=== PATIENT | female | born 2000 | race Caucasian/White ===

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

== ENCOUNTER 2022-11-13 18:22 | Emergency (ER) | payer MEDICAID, OTHER ==
[2022-11-13 19:12] LABS: GLUCOSE, URINE (UA) NEGATIVE (NEGATIVE); KETONES,URINE (UA) 40 mg/dL (NEGATIVE); LEUKOCYTE ESTERASE, URINE NEGATIVE (NEGATIVE); NITRITE,URINE NEGATIVE (NEGATIVE); OCCULT BLOOD,URINE NEGATIVE (NEGATIVE); PROTEIN,URINE TRACE mg/dL (NEGATIVE); UROBILINOGEN,URINE 1 (NORMAL) E.U./dL (NORMAL)
[2022-11-13 19:14] LABS: HCG UR QUAL NEGATIVE
[2022-11-13 19:15] LABS: BASOPHILS # (AUTO) 0.1 10^3/uL (0.0-0.1); BASOPHILS % (AUTO) 0.6 %; EOSINOPHILS % (AUTO) 0.3 %; HGB - HEMOGLOBIN 14.6 g/dL (12.0-16.0); LYMPHOCYTES # (AUTO) 1.5 10^3/uL (1.5-3.5); LYMPHOCYTES % (AUTO) 11.5 %; MEAN CORPUSCULAR HEMOGLOBIN 27.5 pg (27.0-31.0); MEAN CORPUSCULAR HGB CONC 33.2 g/dL (32.0-36.0); MEAN CORPUSCULAR VOLUME 82.9 fL (81.0-99.0); MEAN PLATELET VOLUME 10.7 fL (7.9-10.8); MONOCYTES # (AUTO) 0.5 10^3/uL (0.0-1.0); MONOCYTES % (AUTO) 4.2 %; NEUTROPHILS # (AUTO) 10.6 10^3/uL (1.5-6.6); NEUTROPHILS % (AUTO) 83.1 %; PLT - PLATELET COUNT 338 10^3/uL (130-450); RED BLOOD COUNT 5.31 10^6/uL (4.20-5.40); RED CELL DISTRIBUTION WIDTH 12.1 % (12.0-15.0); WHITE BLOOD COUNT 12.7 x10^3/uL (4.8-10.8)
[2022-11-13 19:18] LABS: CLARITY,URINE HAZY (CLEAR)
[2022-11-13 19:19] LABS: BILIRUBIN,URINE NEGATIVE (NEGATIVE); ICTOTEST,URINE NEGATIVE
[2022-11-13 19:23] LABS: BACTERIA,URINE Few /HPF (None Seen); MUCUS,URINE Marked Strands; RBC,URINE 0-5 /HPF (0-5); SQUAMOUS EPITHELIAL CELL,UR FEW Squamous (<= Few); WBC,URINE 0-3 /HPF (0-5)
[2022-11-13] MEDS: LORazepam 1 MG TABLET PO STA ×2 (19:23→19:26)
[2022-11-13 19:32] LABS: ALBUMIN 5.2 g/dL (3.2-5.5); ALBUMIN/GLOBULIN RATIO 1.6 (1.0-2.2); BILIRUBIN,TOTAL 5.2 mg/dL (0.2-1.0); CALCIUM 9.9 mg/dL (8.5-10.3); CREATININE 0.9 mg/dL (0.4-1.0); POTASSIUM 3.5 mmol/L (3.5-5.0); TOTAL PROTEIN 8.4 g/dL (6.7-8.2)
--- NOTE | 2022-11-13 19:44 | ED Physician Documentation ---
History of Present Illness - Stated complaint Stated Complaint: NAUSEA,CHILLS - Chief complaint Chief Complaint: General - History obtained from History obtained from: Patient - History of Present Illness Timing: Yesterday Pain level max: 0 Pain level now: 0 - Additonal information Additional information: Patient is a 22-year-old female who presents to the emergency department complaining of nausea, chills, shaking. She states that she has been under a lot of stress and has a longstanding history of anxiety. No fevers. Has a longstanding history of anxiety, is not currently taking any medications. She does use cannabis daily. Denies any possibility of . No recent travel. No recent antibiotics. She states that she feels like she has been hyperventilating since last night. She states that she is having tingling in both of her hands. Review of Systems Constitutional: denies: Fever, Chills Respiratory: denies: Cough GI: reports: Nausea, Vomiting. denies: Abdominal Pain, Diarrhea, Hematemesis, B loody / black stool : denies: Dysuria, Frequency, Hesitancy, Now EGA Skin: denies: Rash Musculoskeletal: denies: Neck pain, Back pain Neurologic: denies: Headache Psychiatric: reports: Anxiety. denies: Suicidal, Homicidal, Hallucinations, Delusions PD PAST MEDICAL HISTORY - Past Medical History Past Medical History: Yes Psych: Depression, Anxiety - Present Medications Home Medications: Ambulatory Orders Medication Instructions Recorded Confirmed LORazepam [Ativan] 0.5 mg PO BID PRN #7 tablet 11/13/22 Ondansetron Odt [Zofran] 4 mg TL Q6H PRN #10 tablet 11/13/22 - Allergies Allergies/Adverse Reactions: Allergies Allergy/AdvReac Type Severity Reaction Status Date / Time No Known Drug Allergies Allergy Verified 11/13/22 18:25 - Living Situation Living Situation: reports: With family Living Arrangement: reports: At home - Social History Does the pt smoke?: No Smoking Status: Never smoker Does the pt have substance abuse?: Yes Substance Use and Type: Marijuana PD ED PE NORMAL - Vitals Vital signs reviewed: Yes - General General: Alert and oriented X 3, Well developed/nourished, Other (Hyperventilating, anxious) - HEENT HEENT: PERRL, Moist mucous membranes - Neck Neck: Supple, no meningeal sign - Cardiac Cardiac: RRR, Strong equal pulses - Respiratory Respiratory: No respiratory distress, Clear bilaterally - Abdomen Abdomen: Soft, Non tender, Non distended - Back Back: No CVA TTP, No spinal TTP - Derm Derm: Warm and dry, No rash - Extremities Extremities: No edema, No calf tenderness / cord - Neuro Neuro: Alert and oriented X 3 - Psych Psych: Normal mood, Normal affect Results - Vitals Vitals: Vital Signs - 24 hr 11/13/22 11/13/22 18:25 21:23 Temperature 36.5 C 36.3 C L Heart Rate 77 63 Respiratory 20 16 Rate Blood Pressure 127/68 112/52 L O2 Saturation 99 96 Oxygen O2 Source Room air - Labs Labs: Laboratory Tests 11/13/22 11/13/22 11/13/22 19:01 19:01 19:09 WBC 12.7 H RBC 5.31 Hgb 14.6 Hct 44.0 MCV 82.9 MCH 27.5 MCHC 33.2 RDW 12.1 Plt Count 338 MPV 10.7 Neut # (Auto) 10.6 H Lymph # (Auto) 1.5 [place] # (Auto) 0.5 Eos # (Auto) 0.0 Baso # (Auto) 0.1 Absolute Nucleated RBC 0.00 Nucleated RBC % 0.0 Sodium Potassium Chloride Carbon Dioxide Anion Gap BUN Creatinine Estimated GFR (MDRD) Glucose Calcium Total Bilirubin AST ALT Alkaline Phosphatase Total Protein Albumin Globulin Albumin/Globulin Ratio Lipase Urine Color DARK YELLOW Urine Clarity HAZY Urine pH 6.0 Ur Specific [place] >=1.030 H Urine Protein TRACE Urine Glucose (UA) NEGATIVE Urine Ketones 40 H Urine Occult Blood NEGATIVE Urine Nitrite NEGATIVE Urine Bilirubin NEGATIVE Urine Urobilinogen 1 (NORMAL) Ur Leukocyte Esterase NEGATIVE Urine RBC 0-5 Urine WBC 0-3 Ur Squamous Epith Cells FEW Squamous Urine Bacteria Few Urine Mucus Marked Strands Ur Microscopic Review INDICATED Urine Culture Comments NOT INDICATED Urine HCG, Qual NEGATIVE Urine Opiates Screen NEGATIVE Ur Oxycodone Screen NEGATIVE Urine Methadone Screen NEGATIVE Ur Propoxyphene Screen NEGATIVE Ur Barbiturates Screen NEGATIVE Ur Tricyclics Screen NEGATIVE Ur Phencyclidine Scrn NEGATIVE Ur Amphetamine Screen NEGATIVE U Methamphetamines Scrn NEGATIVE U Benzodiazepines Scrn NEGATIVE Urine Cocaine Screen NEGATIVE U Cannabinoids Screen POSITIVE H 11/13/22 19:09 WBC RBC Hgb Hct MCV MCH MCHC RDW Plt Count MPV Neut # (Auto) Lymph # (Auto) [place] # (Auto) Eos # (Auto) Baso # (Auto) Absolute Nucleated RBC Nucleated RBC % Sodium 138 Potassium 3.5 Chloride 102 Carbon Dioxide 20 L Anion Gap 16.0 H BUN 15 Creatinine 0.9 Estimated GFR (MDRD) 80 L Glucose 125 H Calcium 9.9 Total Bilirubin 5.2 H AST 28 ALT 32 Alkaline Phosphatase 76 Total Protein 8.4 H Albumin 5.2 Globulin 3.2 Albumin/Globulin Ratio 1.6 Lipase 27 Urine Color Urine Clarity Urine pH Ur Specific [place] Urine Protein Urine Glucose (UA) Urine Ketones Urine Occult Blood Urine Nitrite Urine Bilirubin Urine Urobilinogen Ur Leukocyte Esterase Urine RBC Urine WBC Ur Squamous Epith Cells Urine Bacteria Urine Mucus Ur Microscopic Review Urine Culture Comments Urine HCG, Qual Urine Opiates Screen Ur Oxycodone Screen Urine Methadone Screen Ur Propoxyphene Screen Ur Barbiturates Screen Ur Tricyclics Screen Ur Phencyclidine Scrn Ur Amphetamine Screen U Methamphetamines Scrn U Benzodiazepines Scrn Urine Cocaine Screen U Cannabinoids Screen PD Medical Decision Making - ED course Complexity details: reviewed results, re-evaluated patient, considered differential, d/w patient, d/w family ED course: Patient is well-appearing, nontoxic. Afebrile. She does have a mild leukocytosis, chemistry is consistent with hyperventilation. Her total bilirubin is mildly elevated but has no abdominal tenderness. Unclear etiology of this. She will follow-up with her doctor for this. We do not have any old values for comparison. No evidence of biliary colic today. Patient feels much better after Zofran and Ativan. She feels more relaxed and is no longer hyperventilating. The paresthesias in the hands have resolved. Will prescribe a small amount of medication for home and have her follow-up with her PCP. Patient counseled regarding signs and symptoms for which I believe and urgent re-evaluation would be necessary. Patient with good understanding of and agreement to plan and is comfortable going home at this time This document was made in part using voice recognition software. While efforts are made to proofread this document, sound alike and grammatical errors may occur. Departure - Departure Disposition: 01 Home, Self Care Clinical Impression: Anxiety, Hyperventilation, Hyperbilirubinemia Condition: Stable Instructions: ED Stress React, ED Hyperventilation Syndrome Follow-Up: Your,doctor in 1 week [Other] Prescriptions: LORazepam [Ativan] 0.5 mg PO BID PRN #7 tablet PRN Reason: anxiety Ondansetron Odt [Zofran] 4 mg TL Q6H PRN #10 tablet PRN Reason: Nausea / Vomiting Comments: Please follow-up with your doctor for further care. You appear to be under significant stress, you were given medication to help with this tonight. Your prescriptions were sent to [facility] in [place]. A list of local primary care providers is in this paperwork. Crisis Line and is available to talk to someone [email or web address] is also available to chat with someone online if you prefer. There are also many resources on this website and apps for your phone to help with your mental health You can also text the word START to [phone] to chat with someome via text. Forms: PCP List Discharge Date/Time: 11/13/22 21:25
[2022-11-13 19:47] LABS: MUDS CUTOFF CONCENTRATIONS CUTOFF CONC BELOW:
[2022-11-13 19:59] LABS: AMPHETAMINE SCREEN,URINE NEGATIVE (NEGATIVE); BARBITURATE SCREEN,UR NEGATIVE (NEGATIVE); BENZODIAZEPINES SCREEN, URINE NEGATIVE (NEGATIVE); COCAINE SCREEN URINE NEGATIVE (NEGATIVE); METHADONE SCREEN, URINE NEGATIVE (NEGATIVE); METHAMPHETAMINES SCREEN, URINE NEGATIVE (NEGATIVE); OPIATE SCREEN, URINE NEGATIVE (NEGATIVE); OXYCODONE SCREEN, URINE NEGATIVE (NEGATIVE); PROPOXYPHENE SCREEN, URINE NEGATIVE (NEGATIVE); THC CANNABINOID SCREEN, URINE POSITIVE (NEGATIVE); TRICYCLIC ANTIDEPRESSANT,URINE NEGATIVE (NEGATIVE)
[2022-11-13] MEDS ORDERED: ONDANSETRON ODT 4 MG TABLET TL STA (20:20)
[2022-11-13] MEDS ORDERED: LORazepam 0.5 MG TABLET PO STA (20:20)
[2022-11-13 21:51] VITALS: BP 112/52
== END 2022-11-13 21:25 | disposition home or self-care (01) ==
LOC: ED 18:22
DX: F41.9 Anxiety disorder, unspecified (principal); R06.4 Hyperventilation; E80.6 Other disorders of bilirubin metabolism
CPT/HCPCS: 36415; 80053; 80306; 81001; 81025; 83690; 85025; 99283; A9270; J8499; Q0162; 81003; 87086

== ENCOUNTER 2023-10-20 16:12 | Outpatient (CLI) | payer MEDICAID | END 2023-10-20 16:13 | disposition critical access hospital (66) | LOC: EMS 16:12 | DX: Z04.6 Encounter for general psychiatric examination, requested by authority (principal); S51.812A Laceration without foreign body of left forearm, initial encounter; X78.1XXA Intentional self-harm by knife, initial encounter | CPT/HCPCS: A0425; A0429; A0999 ==

== ENCOUNTER 2023-10-20 16:48 | Emergency (ER) | payer MEDICAID ==
--- NOTE | 2023-10-20 17:12 | ED Physician Documentation ---
PD HPI MHE - Stated complaint Stated Complaint: SI - Chief complaint Chief Complaint: MHE - History obtained from History obtained from: Patient, EMS - History of Present Illness Primary symptom: Self harm - cut Pain level max: 0 Pain level now: 0 - Additional information Additional information: Patient is a 23-year-old female who states that she has a longstanding history of depression. She was hospitalized 2 years ago at [facility]. She states that she does not have a counselor or psychiatrist currently. Does not have a primary care provider. She states that she was cutting her left arm with an X-[employer] knife today. She states she was not trying to kill herself. She states that she has thoughts of suicide but no plan. She does not want to go to inpatient treatment. Police placed her on an NICK and brought her in by EMS. Tetanus shot up-to-date. She lives with her boyfriend. She does smoke. Review of Systems Constitutional: denies: Fever, Chills GI: denies: Nausea, Vomiting, Diarrhea Skin: denies: Rash Musculoskeletal: denies: Neck pain, Back pain Neurologic: denies: Headache PD PAST MEDICAL HISTORY - Past Medical History Psych: Depression, Anxiety - Past Surgical History Past Surgical History: No - Present Medications Home Medications: Ambulatory Orders Medication Instructions Recorded Confirmed No Known Home Medications 10/20/23 10/20/23 - Allergies Allergies/Adverse Reactions: Allergies Allergy/AdvReac Type Severity Reaction Status Date / Time No Known Drug Allergies Allergy Verified 10/20/23 17:04 - Social History Does the pt smoke?: No Smoking Status: Never smoker Does the pt drink ETOH?: No Does the pt have substance abuse?: Yes - Immunizations Immunizations are current?: No Immunizations: TDAP >10years/unknown - POLST Patient has POLST: No PD ED PE NORMAL - Vitals Vital signs reviewed: Yes - General General: Alert and oriented X 3, No acute distress - HEENT HEENT: Moist mucous membranes - Neck Neck: Supple, no meningeal sign - Cardiac Cardiac: RRR - Respiratory Respiratory: No respiratory distress, Clear bilaterally - Abdomen Abdomen: Soft, Non tender, Non distended - Derm Derm: Warm and dry - Extremities Extremities: Other (There are multiple superficial abrasions to the left forearm. These are on the dorsum of the forearm. No active bleeding.) - Neuro Neuro: Alert and oriented X 3 Results - Vitals Vitals: Vital Signs - 24 hr 10/20/23 10/20/23 17:05 20:16 Temperature 37.3 C 37.0 C Heart Rate 85 82 Respiratory 16 16 Rate Blood Pressure 121/85 H 118/82 H O2 Saturation 100 100 Oxygen O2 Source Room air - Labs Labs: Laboratory Tests 10/20/23 10/20/23 10/20/23 17:11 17:11 18:44 WBC 9.3 RBC 4.73 Hgb 13.4 Hct 39.6 MCV 83.7 MCH 28.3 MCHC 33.8 RDW 12.5 Plt Count 262 MPV 10.6 Neut # (Auto) 7.7 H Lymph # (Auto) 1.2 L [place] # (Auto) 0.4 Eos # (Auto) 0.0 Baso # (Auto) 0.1 Absolute Nucleated RBC 0.00 Nucleated RBC % 0.0 Sodium 140 Potassium 4.5 Chloride 107 Carbon Dioxide 24 Anion Gap 9.0 BUN 7 Creatinine 0.8 Estimated GFR (MDRD) 91 Glucose 91 Calcium 10.2 Magnesium 1.8 Total Bilirubin 2.5 H AST 13 ALT 9 L Alkaline Phosphatase 60 Total Protein 7.0 Albumin 4.9 Globulin 2.1 Albumin/Globulin Ratio 2.3 H Lipase 14 TSH 0.71 Urine Color YELLOW Urine Clarity CLEAR Urine pH 6.0 Ur Specific [place] >=1.030 H Urine Protein TRACE Urine Glucose (UA) NEGATIVE Urine Ketones >=80 H Urine Occult Blood NEGATIVE Urine Nitrite NEGATIVE Urine Bilirubin NEGATIVE Urine Urobilinogen 0.2 (NORMAL) Ur Leukocyte Esterase NEGATIVE Ur Microscopic Review NOT INDICATED Urine Culture Comments NOT INDICATED Urine HCG, Qual NEGATIVE Salicylates < 1.5 Urine Opiates Screen NEGATIVE Ur Buprenorphine Scrn NEGATIVE Ur Oxycodone Screen NEGATIVE Urine Methadone Screen NEGATIVE Acetaminophen 0.1 Ur Barbiturates Screen NEGATIVE Ur Tricyclics Screen NEGATIVE Ur Phencyclidine Scrn NEGATIVE Ur Amphetamine Screen NEGATIVE U Methamphetamines Scrn NEGATIVE U Benzodiazepines Scrn NEGATIVE Urine Cocaine Screen NEGATIVE U Cannabinoids Screen POSITIVE H Ur Drug Screen Comment CUTOFF CONC BELOW: Ethyl Alcohol < 10.0 SARS-CoV-2 (PCR) 10/20/23 18:48 WBC RBC Hgb Hct MCV MCH MCHC RDW Plt Count MPV Neut # (Auto) Lymph # (Auto) [place] # (Auto) Eos # (Auto) Baso # (Auto) Absolute Nucleated RBC Nucleated RBC % Sodium Potassium Chloride Carbon Dioxide Anion Gap BUN Creatinine Estimated GFR (MDRD) Glucose Calcium Magnesium Total Bilirubin AST ALT Alkaline Phosphatase Total Protein Albumin Globulin Albumin/Globulin Ratio Lipase TSH Urine Color Urine Clarity Urine pH Ur Specific [place] Urine Protein Urine Glucose (UA) Urine Ketones Urine Occult Blood Urine Nitrite Urine Bilirubin Urine Urobilinogen Ur Leukocyte Esterase Ur Microscopic Review Urine Culture Comments Urine HCG, Qual Salicylates Urine Opiates Screen Ur Buprenorphine Scrn Ur Oxycodone Screen Urine Methadone Screen Acetaminophen Ur Barbiturates Screen Ur Tricyclics Screen Ur Phencyclidine Scrn Ur Amphetamine Screen U Methamphetamines Scrn U Benzodiazepines Scrn Urine Cocaine Screen U Cannabinoids Screen Ur Drug Screen Comment Ethyl Alcohol SARS-CoV-2 (PCR) NOT DETECTED PD Medical Decision Making - ED course Complexity details: reviewed results, re-evaluated patient, considered differential, d/w patient ED course: 23-year-old female with vague suicidal ideation but no plan. Superficial abrasions to the left forearm. These were cleansed and bandaged. Medically clear for psychiatric care. DCR was consulted, Omaira, came and evaluated the patient. Safety plan created. Outpatient care was put into place. Patient is no longer tearful. She feels comfortable going home and will return if she worsens. She is not currently suicidal. Does not have a plan. Outpatient resources given. Patient counseled regarding signs and symptoms for which I believe and urgent re-evaluation would be necessary. Patient with good understan ding of and agreement to plan and is comfortable going home at this time This document was made in part using voice recognition software. While efforts are made to proofread this document, sound alike and grammatical errors may occur. Departure - Departure Disposition: 01 Home, Self Care Clinical Impression: Suicidal thoughts Depression Qualifiers: Depression Type: unspecified Qualified Code(s): F32.A - Depression, unspecified Condition: Good Instructions: ED Depression Follow-Up: [facility] [[facility] Group] [facility] [Provider Group] [facility] [Provider Group] Primary[facility] [place] [Provider Group] Comments: Please follow-up as directed by Omaira, the clinical social work aide/DCR today. Please return if you worsen. If you are having any thoughts that you do not want to live, thoughts of hurting yourself, or thoughts of hurting anyone else, please call 911, the crisis line at [phone], or go to your nearest emergency department. Crisis Line and is available to talk to someone [email or web address] is also available to chat with someone online if you prefer. There are also many resources on this website and apps for your phone to help with your mental health You can also text the word START to [phone] to chat with someome via text. Forms: PCP List Discharge Date/Time: 10/20/23 20:16
[2023-10-20 17:15] LABS: BASOPHILS # (AUTO) 0.1 10^3/uL (0.0-0.1); BASOPHILS % (AUTO) 0.5 %; HCT - HEMATOCRIT 39.6 % (37.0-47.0); HGB - HEMOGLOBIN 13.4 g/dL (12.0-16.0); LYMPHOCYTES # (AUTO) 1.2 10^3/uL (1.5-3.5); LYMPHOCYTES % (AUTO) 12.5 %; MEAN CORPUSCULAR HEMOGLOBIN 28.3 pg (27.0-31.0); MEAN CORPUSCULAR HGB CONC 33.8 g/dL (32.0-36.0); MEAN CORPUSCULAR VOLUME 83.7 fL (81.0-99.0); MEAN PLATELET VOLUME 10.6 fL (7.9-10.8); MONOCYTES # (AUTO) 0.4 10^3/uL (0.0-1.0); MONOCYTES % (AUTO) 3.9 %; NEUTROPHILS # (AUTO) 7.7 10^3/uL (1.5-6.6); NEUTROPHILS % (AUTO) 82.7 %; PLT - PLATELET COUNT 262 10^3/uL (130-450); RED BLOOD COUNT 4.73 10^6/uL (4.20-5.40); RED CELL DISTRIBUTION WIDTH 12.5 % (12.0-15.0); WHITE BLOOD COUNT 9.3 x10^3/uL (4.8-10.8)
[2023-10-20 17:21] VITALS: O2SAT 100
[2023-10-20] MEDS: BACITRACIN ZINC OINT 1 PACKET TOP STA (17:26)
[2023-10-20 17:28] LABS: MAGNESIUM 1.8 mg/dL (1.7-2.3)
[2023-10-20 17:34] LABS: ACETAMINOPHEN 0.1 ug/mL; ALBUMIN 4.9 g/dL (3.2-5.5); ALBUMIN/GLOBULIN RATIO 2.3 (1.0-2.2); ALKALINE PHOSPHATASE 60 IU/L (42-121); ALT ALANINE AMINOTRANSFERASE 9 IU/L (10-60); AST ASPARTATE AMINOTRANSFERASE 13 IU/L (10-42); BILIRUBIN,TOTAL 2.5 mg/dL (0.2-1.0); BUN - BLOOD UREA NITROGEN 7 mg/dL (6-20); CALCIUM 10.2 mg/dL (8.5-10.3); CARBON DIOXIDE - CO2 24 mmol/L (21-32); CHLORIDE 107 mmol/L (101-111); CREATININE 0.8 mg/dL (0.6-1.3); ETOH - ETHANOL < 10.0 mg/dL; GFR - MDRD 91 (>89); GLUCOSE 91 mg/dL (74-104); LIPASE 14 U/L (11-82); POTASSIUM 4.5 mmol/L (3.5-4.5); SODIUM 140 mmol/L (135-145)
[2023-10-20 17:39] LABS: SALICYLATE < 1.5 mg/dL
[2023-10-20 17:45] LABS: THYROID STIMULATING HORMONE 0.71 uIU/mL (0.34-5.60)
[2023-10-20 18:58] LABS: BILIRUBIN,URINE NEGATIVE (NEGATIVE); GLUCOSE, URINE (UA) NEGATIVE (NEGATIVE); KETONES,URINE (UA) >=80 mg/dL (NEGATIVE); LEUKOCYTE ESTERASE, URINE NEGATIVE (NEGATIVE); NITRITE,URINE NEGATIVE (NEGATIVE); OCCULT BLOOD,URINE NEGATIVE (NEGATIVE); PROTEIN,URINE TRACE mg/dL (NEGATIVE); UROBILINOGEN,URINE 0.2 (NORMAL) E.U./dL (NORMAL)
[2023-10-20 18:59] LABS: CLARITY,URINE CLEAR (CLEAR); HCG UR QUAL NEGATIVE
[2023-10-20 19:09] LABS: AMPHETAMINE SCREEN,URINE NEGATIVE (NEGATIVE); BENZODIAZEPINES SCREEN, URINE NEGATIVE (NEGATIVE); COCAINE SCREEN URINE NEGATIVE (NEGATIVE); METHADONE SCREEN, URINE NEGATIVE (NEGATIVE); METHAMPHETAMINES SCREEN, URINE NEGATIVE (NEGATIVE); OPIATE SCREEN, URINE NEGATIVE (NEGATIVE); THC CANNABINOID SCREEN, URINE POSITIVE (NEGATIVE); TRICYCLIC ANTIDEPRESSANT,URINE NEGATIVE (NEGATIVE)
[2023-10-20 19:10] LABS: BARBITURATE SCREEN,UR NEGATIVE (NEGATIVE); BUPRENORPHINE SCREEN, URINE NEGATIVE (NEGATIVE); OXYCODONE SCREEN, URINE NEGATIVE (NEGATIVE)
[2023-10-20 20:33] VITALS: BP 118/82
== END 2023-10-20 20:16 | disposition home or self-care (01) ==
LOC: EDUNIT# → ED 16:48
DX: R45.851 Suicidal ideations (principal); F32.A Depression, unspecified; S50.812A Abrasion of left forearm, initial encounter; X78.1XXA Intentional self-harm by knife, initial encounter; F17.200 Nicotine dependence, unspecified, uncomplicated
CPT/HCPCS: 36415; 80053; 80143; 80179; 80306; 81001; 81003; 81025; 82077; 83690; 83735; 84443; 85025; 87086; 87635; 99284

== ENCOUNTER 2023-12-11 14:48 | Emergency (ER) | payer MEDICAID ==
[2023-12-11 15:03] VITALS: BP 100/60; O2SAT 100
[2023-12-11 15:17] LABS: BASOPHILS # (AUTO) 0.1 10^3/uL (0.0-0.1); BASOPHILS % (AUTO) 0.7 %; EOSINOPHILS % (AUTO) 0.2 %; HCT - HEMATOCRIT 43.2 % (37.0-47.0); HGB - HEMOGLOBIN 14.4 g/dL (12.0-16.0); LYMPHOCYTES # (AUTO) 1.2 10^3/uL (1.5-3.5); LYMPHOCYTES % (AUTO) 14.4 %; MEAN CORPUSCULAR HEMOGLOBIN 27.9 pg (27.0-31.0); MEAN CORPUSCULAR HGB CONC 33.3 g/dL (32.0-36.0); MEAN CORPUSCULAR VOLUME 83.6 fL (81.0-99.0); MEAN PLATELET VOLUME 10.7 fL (7.9-10.8); MONOCYTES # (AUTO) 0.5 10^3/uL (0.0-1.0); MONOCYTES % (AUTO) 6.6 %; NEUTROPHILS # (AUTO) 6.4 10^3/uL (1.5-6.6); NEUTROPHILS % (AUTO) 77.9 %; PLT - PLATELET COUNT 276 10^3/uL (130-450); RED BLOOD COUNT 5.17 10^6/uL (4.20-5.40); RED CELL DISTRIBUTION WIDTH 12.5 % (12.0-15.0); WHITE BLOOD COUNT 8.2 x10^3/uL (4.8-10.8)
[2023-12-11 15:31] LABS: BILIRUBIN,URINE NEGATIVE (NEGATIVE); GLUCOSE, URINE (UA) NEGATIVE (NEGATIVE); KETONES,URINE (UA) NEGATIVE (NEGATIVE); LEUKOCYTE ESTERASE, URINE NEGATIVE (NEGATIVE); NITRITE,URINE NEGATIVE (NEGATIVE); OCCULT BLOOD,URINE NEGATIVE (NEGATIVE); PH,URINE 7.5 PH (5.0-7.5); PROTEIN,URINE NEGATIVE (NEGATIVE); UROBILINOGEN,URINE 0.2 (NORMAL) E.U./dL (NORMAL)
[2023-12-11 15:35] LABS: ACETAMINOPHEN 0.2 ug/mL; ALBUMIN 5.2 g/dL (3.2-5.5); ALKALINE PHOSPHATASE 57 IU/L (42-121); ALT ALANINE AMINOTRANSFERASE 8 IU/L (10-60); AST ASPARTATE AMINOTRANSFERASE 13 IU/L (10-42); BILIRUBIN,TOTAL 2.4 mg/dL (0.2-1.0); BUN - BLOOD UREA NITROGEN 4 mg/dL (6-20); CALCIUM 9.9 mg/dL (8.5-10.3); CARBON DIOXIDE - CO2 24 mmol/L (21-32); CHLORIDE 106 mmol/L (101-111); CREATININE 0.8 mg/dL (0.6-1.3); GFR - MDRD 91 (>89); GLUCOSE 98 mg/dL (74-104); LIPASE 16 U/L (11-82); POTASSIUM 3.8 mmol/L (3.5-4.5); SODIUM 138 mmol/L (135-145); TOTAL PROTEIN 7.8 g/dL (6.4-8.9)
[2023-12-11 15:35] LABS: CLARITY,URINE CLEAR (CLEAR); HCG UR QUAL NEGATIVE
--- NOTE | 2023-12-11 15:46 | ED Physician Documentation ---
PD HPI MHE - Stated complaint Stated Complaint: SI - Chief complaint Chief Complaint: MHE - History obtained from History obtained from: Patient, Other (therapist) - History of Present Illness Primary symptom: Suicidal ideation Recently seen: Not recently seen - Additional information Additional information: Patient is a 23-year-old female history of depression and suicidal ideation. Was seen here about a month ago for similar symptoms, she states her suicidal ideation is worsening. She did superficial cutting on the left arm a few days ago. No suicide attempts recently. She has been hospitalized in the past voluntarily. She is here with her counselor stating that she would like to go voluntarily to inpatient. She recently had a break-up and does not have a good outpatient support system. Does not feel like she can keep herself safe. Review of Systems Constitutional: denies: Fever, Chills GI: denies: Vomiting, Diarrhea Skin: denies: Rash Musculoskeletal: denies: Neck pain, Back pain Neurologic: denies: Headache PD PAST MEDICAL HISTORY - Past Medical History Past Medical History: Yes Cardiovascular: None Respiratory: None Neuro: None Endocrine/Autoimmune: None GI: None ACCOUNTING RECRUITER: None : None HEENT: None Psych: Depression, Anxiety Musculoskeletal: None Derm: None - Past Surgical History Past Surgical History: No - Present Medications Home Medications: Ambulatory Orders Medication Instructions Recorded Confirmed No Known Home Medications 10/20/23 12/11/23 - Allergies Allergies/Adverse Reactions: Allergies Allergy/AdvReac Type Severity Reaction Status Date / Time No Known Drug Allergies Allergy Verified 12/11/23 14:53 - Social History Does the pt smoke?: No Smoking Status: Never smoker Does the pt drink ETOH?: No Does the pt have substance abuse?: Yes - Immunizations Immunizations are current?: No Immunizations: TDAP >10years/unknown - POLST Patient has POLST: No PD ED PE NORMAL - Vitals Vital signs reviewed: Yes - General General: Alert and oriented X 3, No acute distress - HEENT HEENT: Moist mucous membranes - Neck Neck: Supple, no meningeal sign - Cardiac Cardiac: RRR, Strong equal pulses - Respiratory Respiratory: No respiratory distress, Clear bilaterally - Abdomen Abdomen: Soft, Non tender, Non distended - Derm Derm: Warm and dry - Extremities Extremities: Other (Superficial lacerations to the left forearm. Healed, no infection) - Neuro Neuro: Alert and oriented X 3 - Psych Psych: Normal mood, Normal affect Results - Vitals Vitals: Vital Signs - 24 hr 12/11/23 14:53 Temperature 36.5 C Heart Rate 100 Respiratory 16 Rate Blood Pressure 100/60 O2 Saturation 100 Oxygen O2 Source Room air - Labs Labs: Laboratory Tests 12/11/23 12/11/23 12/11/23 14:55 15:06 15:11 WBC 8.2 RBC 5.17 Hgb 14.4 Hct 43.2 MCV 83.6 MCH 27.9 MCHC 33.3 RDW 12.5 Plt Count 276 MPV 10.7 Neut # (Auto) 6.4 Lymph # (Auto) 1.2 L [place] # (Auto) 0.5 Eos # (Auto) 0.0 Baso # (Auto) 0.1 Absolute Nucleated RBC 0.00 Nucleated RBC % 0.0 Sodium Potassium Chloride Carbon Dioxide Anion Gap BUN Creatinine Estimated GFR (MDRD) Glucose Calcium Total Bilirubin AST ALT Alkaline Phosphatase Total Protein Albumin Globulin Albumin/Globulin Ratio Lipase TSH Urine Color YELLOW Urine Clarity CLEAR Urine pH 7.5 Ur Specific [place] 1.015 Urine Protein NEGATIVE Urine Glucose (UA) NEGATIVE Urine Ketones NEGATIVE Urine Occult Blood NEGATIVE Urine Nitrite NEGATIVE Urine Bilirubin NEGATIVE Urine Urobilinogen 0.2 (NORMAL) Ur Leukocyte Esterase NEGATIVE Ur Microscopic Review NOT INDICATED Urine Culture Comments NOT INDICATED Urine HCG, Qual NEGATIVE Salicylates Urine Opiates Screen NEGATIVE Ur Buprenorphine Scrn NEGATIVE Ur Oxycodone Screen NEGATIVE Urine Methadone Screen NEGATIVE Acetaminophen Ur Barbiturates Screen NEGATIVE Ur Tricyclics Screen NEGATIVE Ur Phencyclidine Scrn NEGATIVE Ur Amphetamine Screen NEGATIVE U Methamphetamines Scrn NEGATIVE U Benzodiazepines Scrn NEGATIVE Urine Cocaine Screen NEGATIVE U Cannabinoids Screen POSITIVE H Ur Drug Screen Comment CUTOFF CONC BELOW: Ethyl Alcohol SARS-CoV-2 (PCR) NOT DETECTED 12/11/23 15:11 WBC RBC Hgb Hct MCV MCH MCHC RDW Plt Count MPV Neut # (Auto) Lymph # (Auto) [place] # (Auto) Eos # (Auto) Baso # (Auto) Absolute Nucleated RBC Nucleated RBC % Sodium 138 Potassium 3.8 Chloride 106 Carbon Dioxide 24 Anion Gap 8.0 BUN 4 L Creatinine 0.8 Estimated GFR (MDRD) 91 Glucose 98 Calcium 9.9 Total Bilirubin 2.4 H AST 13 ALT 8 L Alkaline Phosphatase 57 Total Protein 7.8 Albumin 5.2 Globulin 2.6 Albumin/Globulin Ratio 2.0 Lipase 16 TSH 1.38 Urine Color Urine Clarity Urine pH Ur Specific [place] Urine Protein Urine Glucose (UA) Urine Ketones Urine Occult Blood Urine Nitrite Urine Bilirubin Urine Urobilinogen Ur Leukocyte Esterase Ur Microscopic Review Urine Culture Comments Urine HCG, Qual Salicylates < 1.5 Urine Opiates Screen Ur Buprenorphine Scrn Ur Oxycodone Screen Urine Methadone Screen Acetaminophen 0.2 Ur Barbiturates Screen Ur Tricyclics Screen Ur Phencyclidine Scrn Ur Amphetamine Screen U Methamphetamines Scrn U Benzodiazepines Scrn Urine Cocaine Screen U Cannabinoids Screen Ur Drug Screen Comment Ethyl Alcohol < 10.0 SARS-CoV-2 (PCR) PD Medical Decision Making - ED course Complexity details: reviewed results, re-evaluated patient, considered differential, d/w patient ED course: 23-year-old female with SI, does not feel safe at home, requesting voluntary psychiatric hospitalization. Medically clear for psychiatric care. Telepsychiatry will be consulted. Telepsychiatry was consulted, recommend voluntary inpatient hospitalization. They will seek bed placement. If the patient desires to leave, would recommend DCR evaluation as it is unclear if she is able to contract for safety. Patient is signed out to the [facility] emergency department physician. This document was made in part using voice recognition software. While efforts are made to proofread this document, sound alike and grammatical errors may occur. Departure - Departure Clinical Impression: Suicidal thoughts Condition: Stable Forms: PCP List
[2023-12-11 15:48] LABS: THYROID STIMULATING HORMONE 1.38 uIU/mL (0.34-5.60)
[2023-12-11 15:50] LABS: AMPHETAMINE SCREEN,URINE NEGATIVE (NEGATIVE); BENZODIAZEPINES SCREEN, URINE NEGATIVE (NEGATIVE); COCAINE SCREEN URINE NEGATIVE (NEGATIVE); METHAMPHETAMINES SCREEN, URINE NEGATIVE (NEGATIVE); OPIATE SCREEN, URINE NEGATIVE (NEGATIVE); THC CANNABINOID SCREEN, URINE POSITIVE (NEGATIVE); TRICYCLIC ANTIDEPRESSANT,URINE NEGATIVE (NEGATIVE)
[2023-12-11 15:51] LABS: BARBITURATE SCREEN,UR NEGATIVE (NEGATIVE); BUPRENORPHINE SCREEN, URINE NEGATIVE (NEGATIVE); METHADONE SCREEN, URINE NEGATIVE (NEGATIVE); OXYCODONE SCREEN, URINE NEGATIVE (NEGATIVE)
[2023-12-11 16:09] LABS: ETOH - ETHANOL < 10.0 mg/dL
[2023-12-11 16:30] LABS: SALICYLATE < 1.5 mg/dL
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
--- NOTE | 2023-12-11 19:43 | ED Physician Documentation ---
ED Addendum - Addendum Addendum: 12/11/23 19:42 Sign out at 7:30 PM. This is a 23-year-old female who presented with SI, with plan to jump off bridge. She is medically cleared and currently remains voluntary. However, if she were to change her mind, prior team recommends consulting DCR. Psychiatry is searching for disposition currently. PLAN: monitor, anticipate transfer or DCR. 12/11/23 23:01 Patient remained stable, transferred in stable condition. Note bilirubin elevation does not appear new and is suitable for outpatient follow up. Diagnosis: SI Disposition: transferred as above Condition: stable 12/11/23 23:02
== END 2023-12-11 22:35 ==
LOC: ED 14:48
DX: R45.851 Suicidal ideations (principal)
CPT/HCPCS: 36415; 80053; 80143; 80179; 80306; 81001; 81003; 81025; 82077; 83690; 84443; 85025; 87086; 87635; 90834; 99283; 99285